=== PATIENT | female | born 1980 | race Caucasian/White ===

== ENCOUNTER 2016-07-15 12:48 | Emergency (ER) | payer OTHER ==
[2016-07-15 12:54] VITALS: BP 120/87
[2016-07-15] MEDS ORDERED: TOPIRAMATE25 M2 PO (14:00)
[2016-07-15] MEDS ORDERED: SERTRALINE HCL25 MG PO (14:00)
[2016-07-15] MEDS ORDERED: DEXILANT30 M1 PO (14:00)
[2016-07-15] MEDS ORDERED: ADDERALL XR 1515 MG PO (14:01)
--- NOTE | 2016-07-15 14:05 | ED DYSPNEA/ASTHMA COMPLAINT ---
History of Present Illness General Chief Complaint: Dyspnea (COPD, CHF, Other) Stated Complaint: "UM I HAVE BAD ASTHMA" Source: patient, old records Exam Limitations: no limitations Vital Signs & Intake/Output Vital Signs & Intake/Output Vital Signs Date Time Temp Pulse Resp B/P Pulse O2 O2 Flow FiO2 Ox Delivery Rate 07/15 1440 97 07/15 1254 98.0 97 20 120/87 97 Room Air Allergies Coded Allergies: aspirin (Severe, SEVERE HIVES AND SOB 07/15/16) prednisone (Severe, HIVES SEVERE SOB THROAT CLOSING 07/15/16) Reconcile Medications Azithromycin (Zithromax) 250 MG TABLET 1 DP PO AD BRONCHITIS 2 the first day followed by 1 for days 2-5 Dexlansoprazole (Dexilant) 30 MG CAP.DR.BP 1 CAP PO DAILY GI (Reported) Dextroamphetamine/Amphetamine (Adderall XR 15 MG Capsule) 15 MG CAP.ER.24H 1 CAP PO QAM ADHD (Reported) Ondansetron (Zofran Odt) 4 MG TAB.RAPDIS 1 TAB SL TID PRN nausea Robitussin AC (Guaifenesin-Codeine Syrup) 200 MG-20 MG/10 ML LIQUID 10 ML PO Q6HR PRN COUGH Sertraline HCl 25 MG TABLET 1 TAB PO QPM DEPRESSION (Reported) Topiramate 25 MG TABLET 1 TAB PO DAILY HEADACHE (Reported) Triage Note: PT PRESENTS TO ER C/O OF HAVING BAD ALLERGIES AND ASTHMA FOR A FEW WEEKS. PT STATES SHE WAS TAKEN OF F HER ALLERGY MEDICINE FOR A MONTH FOR ALLERGY TESTING AND SINCE HAS BEEN CONGESTED AND NOT FEELING WELL Triage Nurses Notes Reviewed? yes Onset: Gradual Duration: day(s): (3), constant Timing: recent history Severity: mild, moderate Prior Episodes/Possible Cause: occasional episodes Associated Symptoms: cough : No Patient currently breastfeeds: No HPI: 35-year-old female with history of asthma presents to ER for evaluation complaining of rhinorrhea congestion and exacerbation of her asthma over the past few days. Patient states that she is allergic to prednisone and has been using her breathing treatments nebulizers and inhalers with only mild improvement. She states that she stopped taking her allergy medicine for the past 1 month after she accidentally believe she needs to be off of prior to having allergy testing which she'll have done this week. She denies any fevers or chills or reports a nonproductive cough congestion and rhinorrhea. No abdominal or chest pain no shortness of breath Past History Travel History Traveled to [place] past 21 day No Medical History Any Pertinent Medical History? see below for history Neurological: migraine EENT: allergies Respiratory: asthma Gastrointestinal: constipation Surgical History Surgical History: non-contributory Psychosocial History What is your primary language Barbadian Tobacco Use: Never used Family History Hx Contributory? No Review of Systems Review of Systems Constitutional: Reports: see HPI. All Other Systems: Reviewed and Negative Comments Review of systems: See HPI, All other systems negative. Constitutional, no chills no fever, no malaise HEENT: No visual changes no sore throat no congestion, no ear pain Cardiovascular: No chest pain , no palpitation , Skin, no rashes, no change in skin Respiratory: No dyspnea cough no sputum no hemoptysis GI: No nausea no vomiting, no diarrhea, no bloating/constipation : No dysuria Muscle skeletal: No joint pain, , no back pain, no neck pain, Neurologic: No numbness no headache Psych: No stress Heme/endocrine: No bruising no bleeding Immunology: No lymphadenopathy Physical Exam Physical Exam General Appearance: well developed/nourished, no apparent distress, alert, awake Respiratory: normal breath sounds, chest non-tender, no respiratory distress Comments: Well-developed well-nourished patient in no apparent distress. Head/Face: Atraumatic, no maxillary/frontal sinus tenderness, no facial swelling Eyes: PERRL, EOMI, no conjunctival injection. No nystagmus Ear:External auditory canal and Tympanic membranes clear, no erythema, no FB. Nose: atraumatic.Normal inspection Throat: Moist mucous membranes.Pharynx normal. No pharyngeal erythema/exudate seen. No stridor/drooling or assymetry. No swelling or edema. Neck: Supple, no lymphadenopathy, FROM Back: FROM, Nontender Cardiovascular: Regular rate and rhythms no murmurs rubs or gallops, Respiratory: Chest nontender.There were no bony deformities, no asymmetry. No respiratory distress. Patient speaking in full complete sentences. Breath sounds clear to auscultation bilaterally: NO W/R/R Extremities: full range of motion Neuro: Alert and oriented x3 Skin: Warm & dry;No appreciable rash on exposed skin Psych: Mood affect normal, normal memory normal judgment. Core Measures ACS in differential dx? No Severe Sepsis Present: No Septic Shock Present: No Progress Differential Diagnosis: asthma, bronchitis, pericarditis, pulmonary embolism, pneumonia, pneumothorax Plan of Care: Patient speaking in full complete sentences lungs are clear auscultation clinically appears welli do not wish she requires a workup breathing treatment she is in agreement with she denies shortness of breath wheezing at this time. I had an extensive conversation regarding need for close follow up with their primary care physician this week as well as return precautions. I answered all of their questions, they feel comfortable with the plan and follow-up care. I discussed the medications that they will receive with the patient. I gave them signs and symptoms that could indicate an adverse reaction. I have advised them to limit their activities until they can see how they respond to the medication. Initial ED EKG: none Departure Departure Time of Disposition: 1423 Disposition: HOME OR SELF CARE Condition: Stable Clinical Impression Primary Impression: Bronchitis Referrals: UNKNOWN (PCP/Family) Additional Instructions: Follow-up with your primary care physician this week continue taking her medications as prescribed. zpak and robitussin with codeine as discussed- these medications were sent to your pharmacy in [place] Departure Forms: Customer Survey General Discharge Information Prescriptions: Current Visit Scripts Ondansetron (Zofran Odt) 1 TAB SL TID PRN nausea #10 TAB Robitussin AC (Guaifenesin-Codeine Syrup) 10 ML PO Q6HR PRN COUGH #200 ML Azithromycin (Zithromax) 1 DP PO AD #6 TAB 2 the first day followed by 1 for days 2-5 Critical Care Note Critical Care Note Critical Care Time: non-applicable
[2016-07-15] MEDS ORDERED: ZITHROMAX250 M2 PO (14:28)
[2016-07-15] MEDS ORDERED: ZOFRAN ODT4 M1 SL (14:28)
[2016-07-15] MEDS ORDERED: GUAIFENESIN-COD10 ML PO (14:28)
== END 2016-07-15 14:38 ==
LOC: ERH 12:48
DX: J40 Bronchitis, not specified as acute or chronic (principal)

== ENCOUNTER 2016-08-13 13:07 | Emergency (ER) | payer OTHER ==
[~2016-08-13] VITALS: Ht 160 cm; Wt 71.2 kg
[~2016-08-13 13:07] MED LIST: ADDERALL XR 1515 MG PO; DEXILANT30 M1 PO; GUAIFENESIN-COD10 ML PO; SERTRALINE HCL25 MG PO; TOPIRAMATE25 M2 PO; ZITHROMAX250 M2 PO; ZOFRAN ODT4 M1 SL
[2016-08-13 13:10] VITALS: BP 119/78
[2016-08-13] MEDS ORDERED: NASONEX17 GM NASB (13:38)
[2016-08-13] MEDS ORDERED: DOXYCYCLINE HY100 M4 PO (13:38)
--- NOTE | 2016-08-13 13:39 | ED INFLUENZA/URI COMPLAINT ---
History of Present Illness General Chief Complaint: Upper Respiratory Sx/Fever Stated Complaint: EAR PAIN SORE THROAT Source: patient Exam Limitations: no limitations Vital Signs & Intake/Output Vital Signs & Intake/Output Vital Signs Date Time Temp Pulse Resp B/P B/P Pulse O2 O2 Flow FiO2 Mean Ox Delivery Rate 08/13 1310 97.4 106 14 119/78 97 Room Air Allergies Coded Allergies: aspirin (Severe, SEVERE HIVES AND SOB 07/15/16) ibuprofen (Severe, ANAPHYLAXIS 08/13/16) prednisone (Severe, HIVES SEVERE SOB THROAT CLOSING 07/15/16) Reconcile Medications Azithromycin (Zithromax) 250 MG TABLET 1 DP PO AD BRONCHITIS 2 the first day followed by 1 for days 2-5 Dexlansoprazole (Dexilant) 30 MG CAP.DR.BP 1 CAP PO DAILY GI (Reported) Dextroamphetamine/Amphetamine (Adderall XR 15 MG Capsule) 15 MG CAP.ER.24H 1 CAP PO QAM ADHD (Reported) Doxycycline Hyclate 100 MG TABLET 1 TAB PO BID sinusitis Mometasone Furoate (Nasonex) 50 MCG SPRAY.PUMP 2 SPRAY NASB DAILY sinusitis Ondansetron (Zofran Odt) 4 MG TAB.RAPDIS 1 TAB SL TID PRN nausea Robitussin AC (Guaifenesin-Codeine Syrup) 200 MG-20 MG/10 ML LIQUID 10 ML PO Q6HR PRN COUGH Sertraline HCl 25 MG TABLET 1 TAB PO QPM DEPRESSION (Reported) Topiramate 25 MG TABLET 1 TAB PO DAILY HEADACHE (Reported) Triage Note: 35 Y/O FEMALE C/O NASAL CONGESTION X 1 WEEK; STATES SHE WAS EVAL'D BY PRIMARY CARE LAST AND PLACED ON ANTIBIOTICS (CURRENTLY STILL ON ANTIBIOTICS) AND NASAL SPRAY. STATES SHE THINKS SHE HAS SINUS INFECTION. AFEBRILE Triage Nurses Notes Reviewed? yes Onset: Abrupt Duration: day(s):, constant, continues in ED Timing: recent history Severity: moderate, severe No Modifying Factors: none : No Patient currently breastfeeds: No HPI: 35-year-old female comes into emergency room with complaints of sinus congestion and ear pain. Patient reports she was started on antibiotics for sinusitis but feels that she is getting worse in regards to her symptoms. Increased nasal congestion. Increased pressure in her ears. Denies any fever or vomiting. Associated sore throat. Denies any other substance symptoms. Past History Travel History Traveled to [place] past 21 day No Medical History Any Pertinent Medical History? see below for history Neurological: migraine EENT: allergies Cardiovascular: NONE Respiratory: asthma Gastrointestinal: constipation, GERD Hepatic: NONE Renal: NONE Musculoskeletal: NONE Psychiatric: NONE Endocrine: NONE Surgical History Surgical History: non-contributory Psychosocial History What is your primary language [place] Island[place] Tobacco Use: Quit >30 days ago Family History Hx Contributory? No Review of Systems Review of Systems Constitutional: Reports: no symptoms. EENTM: Reports: see HPI. Respiratory: Reports: see HPI. Cardiovascular: Reports: no symptoms. GI: Reports: no symptoms. Genitourinary: Reports: no symptoms. Musculoskeletal: Reports: no symptoms. Skin: Reports: no symptoms. Neurological/Psychological: Reports: no symptoms. Hematologic/Endocrine: Reports: no symptoms. Immunologic/Allergic: Reports: no symptoms. All Other Systems: Reviewed and Negative Physical Exam Physical Exam General Appearance: well developed/nourished, no apparent distress, alert Head: atraumatic, normal appearance Eyes: Bilateral: normal appearance, EOMI. Ears, Nose, Throat: normal ENT inspection, moist mucous membrane, nasal congestion, nasal drainage Neck: normal inspection, full range of motion Respiratory: normal breath sounds, no respiratory distress Cardiovascular: regular rate/rhythm Back: normal inspection Extremities: normal inspection, normal range of motion, no edema Neurologic/Psych: awake, alert, oriented x 3, normal gait, normal mood/affect Skin: intact, normal color Core Measures Severe Sepsis Present: No Septic Shock Present: No Progress Differential Diagnosis: influenza, meningitis, neutropenia, otitis, pneumonia, pharyngitis, sinusitis Plan of Care: 08/13/2016 1:45:36 PM Symptoms are most consistent with sinusitis. Patient switched to doxycycline and told to discontinue him Augmentin. Patient started on Nasonex. Return if any concerns worsening of symptoms. Patient understands and agrees with plan of care. Initial ED EKG: none Departure Departure Disposition: HOME OR SELF CARE Condition: Stable Clinical Impression Primary Impression: Sinusitis Referrals: MOUNIKA BURRIS MD (PCP/Family) Additional Instructions: Take doxycycline and Nasonex as prescribed. Follow-up with your primary care doctor. Return if any concerns worsening symptoms. Please go over all results of today's visit with your primary care doctor. Contact your primary care doctor to let them know you were here in the emergency room. There may be nonspecific findings which may not be related to your visit today here in the emergency room but may require further evaluation and chronic monitoring by your primary care doctor. If you had a laceration today the chance of foreign body always remains. You should follow-up with your primary care doctor for recheck in 3-5 days for a wound check. If you had an x-ray done there is a chance that a fracture could have been missed on initial read and you should follow-up with your primary care doctor for repeat x-rays if symptoms persist. If your blood pressure was elevated here in the emergency room please have rechecked by her primary care doctor within the next 48 hours by your primary care doctor. If you were prescribed a narcotic here in the emergency room or any type of controlled substances you're not allowed to drive while taking this medication or operate any type of heavy machinery. Narcotics can make you feel lightheaded dizziness nausea and can cause constipation. You may need to picker and sorter load and unload a stool softener. Thank you for choosing [facility] emergency room. Please return to the emergency room immediately if you have any other concerns worsening of symptoms. Departure Forms: Customer Survey General Discharge Information Prescriptions: Current Visit Scripts Doxycycline Hyclate 1 TAB PO BID #20 TAB Mometasone Furoate (Nasonex) 2 SPRAY NASB DAILY #1 INHAL
== END 2016-08-13 13:45 ==
LOC: ERH 13:07
DX: J32.9 Chronic sinusitis, unspecified (principal); Z87.891 Personal history of nicotine dependence

== ENCOUNTER 2016-08-26 20:48 | Emergency (ER) | payer OTHER ==
[~2016-08-26] VITALS: Ht 160 cm; Wt 69.9 kg
[~2016-08-26 20:48] MED LIST changes: +DOXYCYCLINE HY100 M4 PO; +NASONEX17 GM NASB
[2016-08-26 21:09] VITALS: BP 121/79
[2016-08-26] MEDS ORDERED: AMOXICILLI250 MG/51 PO (21:30)
--- NOTE | 2016-08-26 21:31 | ED INFLUENZA/URI COMPLAINT ---
History of Present Illness General Chief Complaint: General Adult Stated Complaint: DIFF BREATHING, CONGESTION, HX OF ASTHMA Source: patient, old records Exam Limitations: no limitations Vital Signs & Intake/Output Vital Signs & Intake/Output Vital Signs Date Time Temp Pulse Resp B/P B/P Pulse O2 O2 Flow FiO2 Mean Ox Delivery Rate 08/26 2126 97 Room Air 08/26 2108 98.4 111 16 121/79 98 Room Air Room Air Allergies Coded Allergies: aspirin (Severe, SEVERE HIVES AND SOB 08/26/16) ibuprofen (Severe, ANAPHYLAXIS 08/26/16) prednisone (Severe, HIVES SEVERE SOB THROAT CLOSING 08/26/16) doxycycline (Intermediate, NAUSEA 08/26/16) latex (Intermediate, ITCHING 08/26/16) Reconcile Medications Amoxicillin 250 MG/5 ML SUSP.RECON 10 ML PO BID SINUSITIS Azithromycin (Zithromax) 250 MG TABLET 1 DP PO AD BRONCHITIS 2 the first day followed by 1 for days 2-5 Dexlansoprazole (Dexilant) 30 MG CAP.DR.BP 1 CAP PO DAILY GI (Reported) Dextroamphetamine/Amphetamine (Adderall XR 15 MG Capsule) 15 MG CAP.ER.24H 1 CAP PO QAM ADHD (Reported) Doxycycline Hyclate 100 MG TABLET 1 TAB PO BID sinusitis Mometasone Furoate (Nasonex) 50 MCG SPRAY.PUMP 2 SPRAY NASB DAILY sinusitis Ondansetron (Zofran Odt) 4 MG TAB.RAPDIS 1 TAB SL TID PRN nausea Robitussin AC (Guaifenesin-Codeine Syrup) 200 MG-20 MG/10 ML LIQUID 10 ML PO Q6HR PRN COUGH Sertraline HCl 25 MG TABLET 1 TAB PO QPM DEPRESSION (Reported) Topiramate 25 MG TABLET 1 TAB PO DAILY HEADACHE (Reported) Triage Note: PT TO TRIAGE FOR SINUS CONGESTION. STATES IT IS HARD TO SWALLOW DUE TO MUCOUS. DX WITH DOX FOR SINUSITIS AND STOPPED AFTER 3 DAYS DUE TO NAUSEA Triage Nurses Notes Reviewed? yes : No Patient currently breastfeeds: No HPI: Patient presents with continued sinus congestion and postnasal drip. Patient was seen previously for the same. Patient was discharged on Nasonex and doxycycline. Patient states that the doxycycline made her nauseous so she stopped taking it after 3 days and the Nasonex did not work after 5 days. Using. There are no fevers or chills. Patient states that she gets sinus pressure whenever she laid 4. Patient denies any difficulty breathing but states that sometimes she has difficulty swallowing secondary to the postnasal drip. Patient saw her doctor for this approximately a week and a half ago but has not followed up with them since. Past History Travel History Traveled to [place] past 21 day No Medical History Any Pertinent Medical History? see below for history Neurological: migraine EENT: allergies Cardiovascular: NONE Respiratory: asthma Gastrointestinal: constipation, GERD Hepatic: NONE Renal: NONE Musculoskeletal: NONE Psychiatric: NONE Endocrine: NONE Surgical History Surgical History: non-contributory Psychosocial History What is your primary language Latvian Tobacco Use: Never used ETOH Use: denies use Illicit Drug Use: denies illicit drug use Family History Hx Contributory? No Review of Systems Review of Systems Constitutional: Reports: no symptoms. EENTM: Reports: see HPI, nasal congestion. Respiratory: Reports: no symptoms. Cardiovascular: Reports: no symptoms. GI: Reports: see HPI, nausea. Neurological/Psychological: Reports: no symptoms. Immunologic/Allergic: Reports: no symptoms. Physical Exam Physical Exam General Appearance: well developed/nourished, alert, awake, mild distress Head: atraumatic Eyes: Bilateral: PERRL, EOMI. Ears, Nose, Throat: pharynx normal, nasal congestion, nasal drainage Neck: normal inspection, supple, full range of motion Respiratory: normal breath sounds, chest non-tender, no respiratory distress, lungs clear Cardiovascular: regular rate/rhythm, normal peripheral pulses Extremities: normal inspection, normal capillary refill, normal range of motion, no edema Neurologic/Psych: no motor/sensory deficits, awake, alert, oriented x 3, normal gait, normal mood/affect Lymphatic: no anterior cervical yuridia Core Measures Severe Sepsis Present: No Septic Shock Present: No Progress Differential Diagnosis: sinusitis Plan of Care: Patient states that the liquid amoxicillin has worked for her in the past. Initial ED EKG: none Departure Departure Disposition: HOME OR SELF CARE Condition: Stable Clinical Impression Primary Impression: Sinusitis Referrals: SALVATORE FERREIRA,CARMEN BURRIS MD,MOUNIKA (PCP/Family) Additional Instructions: DRINK PLENTY OF FLUIS RETURN FOR ANY CONCERNS Departure Forms: Customer Survey General Discharge Information Prescriptions: Current Visit Scripts Amoxicillin 10 ML PO BID #200 ML
== END 2016-08-26 23:01 ==
LOC: ERH 20:48
DX: J32.9 Chronic sinusitis, unspecified (principal)

== ENCOUNTER 2016-10-03 11:39 | Emergency (ER) | payer OTHER ==
[~2016-10-03] VITALS: Ht 160 cm; Wt 79.4 kg
[~2016-10-03 11:39] MED LIST changes: +AMOXICILLI250 MG/51 PO
[2016-10-03 11:42] VITALS: BP 113/76
--- NOTE | 2016-10-03 11:50 | ED INFLUENZA/URI COMPLAINT ---
History of Present Illness General Chief Complaint: Upper Respiratory Sx/Fever Stated Complaint: ?URI Source: patient Exam Limitations: no limitations Vital Signs & Intake/Output Vital Signs & Intake/Output Vital Signs Date Time Temp Pulse Resp B/P B/P Pulse O2 O2 Flow FiO2 Mean Ox Delivery Rate 10/03 1221 99 Room Air 10/03 1142 97.0 88 16 113/76 97 Room Air Allergies Coded Allergies: aspirin (Severe, SEVERE HIVES AND SOB 08/26/16) ibuprofen (Severe, ANAPHYLAXIS 08/26/16) prednisone (Severe, HIVES SEVERE SOB THROAT CLOSING 08/26/16) doxycycline (Intermediate, NAUSEA 08/26/16) latex (Intermediate, ITCHING 08/26/16) Reconcile Medications Benzonatate (Tessalon Perle) 100 MG CAPSULE 1 CAP PO TID PRN COUGH Brexpiprazole (Rexulti) 2 MG TABLET 1 TAB PO QPM MENTAL HEALTH (Reported) Budesonide/Formoterol Fumarate (Symbicort 160-4.5 Mcg Inhaler) 160 MCG-4.5 MCG/ ACTUATION HFA.AER.AD 2 PUF INH BID SHORTNESS OF BREATH (Reported) Dexlansoprazole (Dexilant) 30 MG CAP.DR.BP 1 CAP PO DAILY GI (Reported) Dextroamphetamine/Amphetamine (Adderall XR 15 MG Capsule) 15 MG CAP.ER.24H 1 CAP PO QAM ADHD (Reported) Fluticasone Propionate (Flonase Allergy Relief) 50 MCG/ACTUATION SPRAY.SUSP 1 SPRAY PALMA DAILY PRN CONGESTION Levofloxacin (Levaquin) 500 MG TABLET 1 TAB PO DAILY SINUSITIS Sertraline HCl 25 MG TABLET 1 TAB PO QPM DEPRESSION (Reported) Topiramate 25 MG TABLET 1 TAB PO DAILY HEADACHE (Reported) Trazodone HCl 100 MG TABLET 1 TAB PO QPM PRN SLEEP (Reported) Triage Note: 36 Y/O FEMALE C/O "STUFFY RUNNY NOSE"; STATES SHE HAS HAD URI SYMPTOMS "FOR MONTHS". STATES SHE WAS EVALUATED FOR SAME A MONTH AGO AND FINISHED MEDS. AFEBRILE. Triage Nurses Notes Reviewed? yes Onset: Gradual Duration: constant Timing: recent history Severity: moderate Severity Numbers: 5 : No Patient currently breastfeeds: No HPI: Patient is a 36-year-old female with a past medical history of asthma who presents emergency room with a 2 month history of intermittent productive to nonproductive coughing sinus pressure and pain, intermittent sore throat, intermittent headache and tactile fevers who states that she was evaluated by [facility] emergency room a few months ago and was prescribed amoxicillin patient states that she feels no better. Patient is an intermittent smoker Denies any shortness of breath chest pain patient also is requesting suture removal from a skin biopsy performed by her ware dresser in which her follow-up appointment is not for 2 weeks in which they advised patient to present to urgent care facility for suture removal biopsy culture is unknown where she will follow-up with her ware dresser (ALLEN ALEXANDER) Past History Travel History Traveled to [place] past 21 day No Medical History Any Pertinent Medical History? see below for history Neurological: migraine EENT: allergies Cardiovascular: NONE Respiratory: asthma Gastrointestinal: constipation, GERD Hepatic: NONE Renal: NONE Musculoskeletal: NONE Psychiatric: NONE Endocrine: NONE Surgical History Surgical History: non-contributory Psychosocial History What is your primary language Mongolian Tobacco Use: Current Not Daily Family History Hx Contributory? No (ALLEN ALEXANDER) Review of Systems Review of Systems Constitutional: Reports: see HPI. EENTM: Reports: see HPI, nasal congestion. Respiratory: Reports: see HPI, cough. Cardiovascular: Reports: no symptoms. GI: Reports: no symptoms. Genitourinary: Reports: no symptoms. Musculoskeletal: Reports: no symptoms. Skin: Reports: no symptoms. Neurological/Psychological: Reports: no symptoms. Hematologic/Endocrine: Reports: no symptoms. Immunologic/Allergic: Reports: no symptoms. All Other Systems: Reviewed and Negative (ALLEN ALEXANDER) Physical Exam Physical Exam General Appearance: no apparent distress, alert, comfortable Ears, Nose, Throat: moist mucous membrane, hearing grossly normal, Tympanic normal Comments: Well-developed well-nourished person in no acute distress HEENT: extraocular motion intact, no nystagmus. Pupils equally round and reactive to light and accommodation. Nasal congestion noted, bilateral maxillary and frontal sinus point tenderness. External auditory canal and Tympanic membranes clear. Pharynx normal. No swelling or edema. Neck: Supple, no lymphadenopathy, normal range of motion without pain or tenderness Back: Nontender, no CVA tenderness. Cardiovascular: Regular rate and rhythms no murmurs rubs or gallops, normal JVP Respiratory: Chest nontender. No respiratory distress.breath sounds clear to auscultation bilaterally Abdomen: Soft, nontender nondistended, no appreciable organomegaly. Normal bowel sounds. No ascites Extremity: No edema, no calf tenderness to palpation, normal and equal pulses. Neuro: Alert oriented x3, motor sensory normal, Skin: No appreciable rash on exposed skin, skin is warm and dry.\\ Noted right supraclavicular X 1 suture Skin intact no discharge no erythema no warmth Psych: Mood and affect is normal, memory and judgment is normal. Core Measures Severe Sepsis Present: No Septic Shock Present: No (ALLEN ALEXANDER) Progress Differential Diagnosis: influenza, meningitis, neutropenia, otitis, pneumonia, pharyngitis, sinusitis Plan of Care: Patient has clear lungs auscultation no respiratory distress. Patient will be treated for concerns of upper respiratory infection and sinusitis. #1 suture was removed to right supraclavicular region Initial ED EKG: none (ALLEN ALEXANDER) Departure Departure Disposition: HOME OR SELF CARE Condition: Stable Clinical Impression Primary Impression: Sinusitis Secondary Impressions: Upper respiratory disease, Visit for suture removal Referrals: SUNSHINE FERREIRA,ROBERT BURRIS MD,MOUNIKA (PCP/Family) Additional Instructions: As discussed begin the prescription of Levaquin as directed for the full course, begin the prescription of Flonase for congestion and Tessalon Perles for cough. prescription is waiting [facility] Continue previously prescribed medications On Friday if symptoms still persist follow-up with ENT Dr. Back. If symptoms worsen return to emergency room Departure Forms: Customer Survey General Discharge Information Prescriptions: Current Visit Scripts Benzonatate (Tessalon Perle) 1 CAP PO TID PRN COUGH #21 CAP Levofloxacin (Levaquin) 1 TAB PO DAILY #7 TAB Fluticasone Propionate (Flonase Allergy Relief) 1 SPRAY PALMA DAILY PRN CONGESTION #1 BOT (ALLEN ALEXANDER) PA/MARKET SPECIALIST Co-Sign Statement Statement: ED Attending supervision documentation- [] I saw and evaluated the patient. I have also reviewed all the pertinent lab results and diagnostic results. I agree with the findings and the plan of care as documented in the PA's/MARKET SPECIALIST's documentation. [X] I have reviewed the ED Record and agree with the PA's/MARKET SPECIALIST's documentation. [] Additions or exceptions (if any) to the PAs/MARKET SPECIALIST's note and plan are summarized below: [] (MAGO FERREIRA,JEFFERSON Small)
[2016-10-03] MEDS ORDERED: SYMBICORT 16010.2 GM INH (12:09)
[2016-10-03] MEDS ORDERED: TRAZODONE HCL100 M1 PO (12:09)
[2016-10-03] MEDS ORDERED: REXULTI2 M1 PO (12:10)
[2016-10-03] MEDS ORDERED: FLONASE ALLERG9.9 ML NAS (12:30)
[2016-10-03] MEDS ORDERED: TESSALON PERLE100 M1 PO (12:30)
[2016-10-03] MEDS ORDERED: LEVAQUIN500 M1 PO (12:30)
== END 2016-10-03 12:47 ==
LOC: ERH 11:39
DX: J32.9 Chronic sinusitis, unspecified (principal); J06.9 Acute upper respiratory infection, unspecified; Z48.02 Encounter for removal of sutures; Z72.0 Tobacco use

== ENCOUNTER 2016-11-15 21:07 | Emergency (ER) | payer OTHER ==
[~2016-11-15] VITALS: Ht 160 cm; Wt 79.8 kg
[~2016-11-15 21:07] MED LIST changes: +FLONASE ALLERG9.9 ML NAS; +LEVAQUIN500 M1 PO; +REXULTI2 M1 PO; +SYMBICORT 16010.2 GM INH; +TESSALON PERLE100 M1 PO; +TRAZODONE HCL100 M1 PO
[2016-11-15 21:20] VITALS: BP 124/84
[2016-11-15] MEDS ORDERED: AMOXICILLIN875 M1 PO (23:08)
[2016-11-15] MEDS ORDERED: BACTRIM DS TAB1 EACH PO (23:08)
--- NOTE | 2016-11-15 23:08 | ED GI/GU/ABDOMINAL COMPLAINT ---
History of Present Illness General Chief Complaint: Skin Rash/ Abcess Stated Complaint: ?ABSCESS TO VAGINAL AREA Source: patient Exam Limitations: no limitations Vital Signs & Intake/Output Vital Signs & Intake/Output Vital Signs Date Time Temp Pulse Resp B/P B/P Pulse O2 O2 Flow FiO2 Mean Ox Delivery Rate 11/150 97.8 100 16 124/84 97 Room Air ED Intake and Output 11/16 0000 11/15 1200 Intake Total Output Total Balance Patient 176 lb Weight Allergies Coded Allergies: aspirin (Severe, SEVERE HIVES AND SOB 08/26/16) ibuprofen (Severe, ANAPHYLAXIS 08/26/16) prednisone (Severe, HIVES SEVERE SOB THROAT CLOSING 08/26/16) doxycycline (Intermediate, NAUSEA 08/26/16) latex (Intermediate, ITCHING 08/26/16) Reconcile Medications Amoxicillin 875 MG TABLET 1 TAB PO BID abscess Benzonatate (Tessalon Perle) 100 MG CAPSULE 1 CAP PO TID PRN COUGH Brexpiprazole (Rexulti) 2 MG TABLET 1 TAB PO QPM MENTAL HEALTH (Reported) Budesonide/Formoterol Fumarate (Symbicort 160-4.5 Mcg Inhaler) 160 MCG-4.5 MCG/ ACTUATION HFA.AER.AD 2 PUF INH BID SHORTNESS OF BREATH (Reported) Dexlansoprazole (Dexilant) 30 MG CAP.DR.BP 1 CAP PO DAILY GI (Reported) Dextroamphetamine/Amphetamine (Adderall XR 15 MG Capsule) 15 MG CAP.ER.24H 1 CAP PO QAM ADHD (Reported) Fluticasone Propionate (Flonase Allergy Relief) 50 MCG/ACTUATION SPRAY.SUSP 1 SPRAY PALMA DAILY PRN CONGESTION Levofloxacin (Levaquin) 500 MG TABLET 1 TAB PO DAILY SINUSITIS Sertraline HCl 25 MG TABLET 1 TAB PO QPM DEPRESSION (Reported) Sulfamethoxazole/Trimethoprim (Bactrim Ds Tablet) 800 MG-160 MG TABLET 1 TAB PO BID abscess Topiramate 25 MG TABLET 1 TAB PO DAILY HEADACHE (Reported) Trazodone HCl 100 MG TABLET 1 TAB PO QPM PRN SLEEP (Reported) Triage Note: PT STTAES THAT SHE HAS AN ABCESS ON HER R LABIA FOR THE PAST 2 DAYS. SHE THOUGHT SHE HAD AN IN GROWN HAIR SO HER BOYFRIEND SHAVED THE AREA AND TRIED TO SQUEEZE IT. STATES THAT NOTHING CAME OUT. AGAIN TODAY HE SQUEEZED IT AND CUT IT WITH RAZOR. NOTHING STILL CAME OUT Triage Nurses Notes Reviewed? yes LMP (ages 10-50): hysterectomy ? N Is pt currently ? No Onset: Gradual Duration: day(s): Timing: recent history Quality/Severity: moderate Location: labia HPI: 36-year-old female presents emergency department complaining of sore bump near vagina. Patient states that on Friday she went swimming in a river and she began to notice these symptoms after that. She is also complaining of dysuria. She notes that bump has increased in size since she first noticed it. She states that she tried to express liquid from it however it has not drained. She has also felt fevers and chills at home. She denies vaginal discharge, vaginal odor, hematuria, abdominal pain, back pain. (EDA LOWERY PA-C) Past History Travel History Traveled to [place] past 21 day No Medical History Any Pertinent Medical History? see below for history Neurological: migraine EENT: allergies Cardiovascular: NONE Respiratory: asthma Gastrointestinal: constipation, GERD Hepatic: NONE Renal: NONE Musculoskeletal: NONE Psychiatric: NONE Endocrine: NONE Surgical History Surgical History: hysterectomy Psychosocial History What is your primary language Zimbabwean Tobacco Use: Never used ETOH Use: denies use Illicit Drug Use: denies illicit drug use Family History Hx Contributory? No (EDA LOWERY PA-C) Review of Systems Review of Systems Constitutional: Reports: see HPI. EENTM: Reports: no symptoms. Respiratory: Reports: no symptoms. Cardiovascular: Reports: no symptoms. GI: Reports: no symptoms. Genitourinary: Reports: see HPI. Musculoskeletal: Reports: no symptoms. Skin: Reports: see HPI. Neurological/Psychological: Reports: no symptoms. Hematologic/Endocrine: Reports: no symptoms. Immunologic/Allergic: Reports: no symptoms. All Other Systems: Reviewed and Negative (EDA LOWERY PA-C) Physical Exam Physical Exam Gastrointestinal: SEE BELOW Comments: Well-developed well-nourished person in no acute distress HEENT: HEAD is atraumatic, normocephalic Neck: Supple, normal range of motion Back: Nontender, no CVA tenderness. Full range of motion Respiratory: No respiratory distress. Patient speaking in full complete sentences. Abdomen: Soft, nontender nondistended, no appreciable organomegaly. Normal bowel sounds. No rebound/guarding, No appreciable enlargement of the abdominal aorta, No ascites. External genetalia: 2x2cm area of swelling, erythema, tenderness, and fluctuance on right labia majora Extremity: No edema, full range of motion of extremities, Neuro: Alert oriented x3, motor sensory normal, There were no obvious focal neurologic abnormalities. Skin: See labia above Psych: Mood and affect is normal, memory and judgment is normal. Core Measures ACS in differential dx? No Severe Sepsis Present: No Septic Shock Present: No (SEBASTIÁN RUTH,EDA HANKINS) Progress Differential Diagnosis: PID/cervicitis, UTI/pyelo, abscess, bartholin cyst Plan of Care: Orders Procedure Date/time Status TRUNK AREA CULTURE 11/15 2300 Active CHLAMYDIA-GC DNA PROBE 11/15 2214 Active URINALYSIS 11/15 2214 Complete Laboratory Tests 11/15/162220: Urine Color YEL, Urine Clarity CLEAR, Urine pH 6.0, Ur Specific Kelley 1.025, Urine Protein NEG, Urine Ketones NEG, Urine Nitrite NEG, Urine Bilirubin NEG, Urine Urobilinogen 0.2, Ur Leukocyte Esterase TRACE H, Ur Microscopic SEDIMENT EXAMINED, Urine RBC RARE, Urine WBC > 75 H, Ur Epithelial Cells MANY H, Urine Mucus MANY H, Urine Hemoglobin NEG, Urine Glucose NEG Microbiology 11/15 232 TRUNK: Culture & Sensitivity - RECD 11/15 2325 TRUNK: Gram Stain - RECD 11/15 2220 URINE ROUT: GC DNA Probe - RECD 11/15 2220 URINE ROUT: Chlamydia DNA Probe (MARIFER) - RECD Very small incision made and wound drained with a small amount of cloudy fluid cultured and sent to lab, moderate amount of blood drained from abscess. Patient experienced some relief of pressure following I&D. The patient had urine that was contaminated with epithelial cells, she is being covered with antibiotics for skin and soft tissue which will cover for possible UTI given dysuria. Urine gonorrhea and chlamydia sent to lab for culture additionally. The patient was given a referral for an PATIENT SCHEDULING MANAGER, she is informed to call them to make an appointment for next week. She was instructed to return here or to her PATIENT SCHEDULING MANAGER referral in 2-3 days for wound check. The patient was given a course of antibiotics for skin and soft tissue infection. The patient is in no acute distress, she is nontoxic-appearing, her vital signs are stable. She will return with any worsening symptoms or concerns. The patient is in agreement with the plan of care. (SEBASTIÁN RUTH,EDA HANKINS) Initial ED EKG: none (SEBASTIÁN RUTH,EDA HANKINS) Departure Departure Disposition: HOME OR SELF CARE Condition: Stable Clinical Impression Primary Impression: Abscess of labia Secondary Impressions: Dysuria Referrals: GUS FERREIRA,BERTRAM BURRIS MD,MOUNIKA (PCP/Family) Additional Instructions: Take full course of antibiotics. Follow-up with PATIENT SCHEDULING MANAGER referral given to you, call the office to make an appointment for next week to reassess abscess. If you are unable to see PATIENT SCHEDULING MANAGER doctor next week return here in 3 days so we may reassess the abscess. Monitor for signs of increasing infection including worsening pain, increased swelling. Return sooner with any worsening symptoms or concerns. Please note that there might be incidental findings in your evaluation that are unrelated to the current emergency department visit. Please notify your primary care doctor about this emergency department visit in order to obtain and review all of the testing performed so that these incidental findings can be monitored as needed. If you had an x-ray performed, please understand that some fractures may not be seen on the initial set of x-rays. If your symptoms persist you might need a repeat set of x-rays to check for such a fracture. If you had a laceration evaluated, please understand that foreign bodies such as glass or wood may not be visible to the naked eye or on plain x-rays. If the wound becomes red, swollen, increasingly more painful or if there is any drainage from the wound, please have it reevaluated by a physician for the possibility of a retained foreign body. If you're unable to follow up as outlined in the discharge instructions please return to the emergency department. Thank you for choosing the [facility] Emergency Department for your care. It was a pleasure to serve you today. Departure Forms: Customer Survey General Discharge Information Prescriptions: Current Visit Scripts Sulfamethoxazole/Trimethoprim (Bactrim Ds Tablet) 1 TAB PO BID #20 TAB Amoxicillin 1 TAB PO BID #20 TAB (EDA LOWERY PA-C) PA/TWISTER TENDER Co-Sign Statement Statement: ED Attending supervision documentation- [] I saw and evaluated the patient. I have also reviewed all the pertinent lab results and diagnostic results. I agree with the findings and the plan of care as documented in the PA's/TWISTER TENDER's documentation. [X] I have reviewed the ED Record and agree with the PA's/TWISTER TENDER's documentation. [] Additions or exceptions (if any) to the PAs/TWISTER TENDER's note and plan are summarized below: [] (MAGO FERREIRA,JEFFERSON Small) Procedures Incision and Drainage Site: right labia majora Blade Size: 11 I & D Procedure: Yes: betadine prep. Progress: Very small incision site with small amount of fluid expressed. Patient was numbed with 1% lidocaine. No work placement necessary. Patient tolerated procedure well. (SEBASTIÁN RUTH,EDA HANKINS)
[2016-11-19] MEDS ORDERED: IBUPROFEN600 M1 PO (15:31)
== END 2016-11-15 23:30 ==
LOC: ERH 21:07
DX: N76.4 Abscess of vulva (principal); R30.0 Dysuria
CPT/HCPCS: 87184; 81001; 87070; 87147; 87491; 87591

== ENCOUNTER 2017-05-24 19:55 | Emergency (ER) | payer OTHER ==
[~2017-05-24] VITALS: Ht 160 cm; Wt 79.8 kg
[~2017-05-24 19:55] MED LIST changes: +AFRIN30 ML NS; +AMOXICILLIN875 M1 PO; +BACTRIM DS TAB1 EACH PO; +CHERATUSSIN AC118 M1 PO; +IBUPROFEN600 M1 PO; +PROAIR HFA8.5 GM INH; +ZOLOFT100 M1 PO
[2017-05-24 20:15] VITALS: BP 129/89
== END 2017-05-24 21:30 | disposition admitted as inpatient to this hospital (09) ==
LOC: ERH 19:55
DX: R11.2 Nausea with vomiting, unspecified (principal)
CPT/HCPCS: 81025